=== PATIENT | male | born 1945 | race Caucasian/White ===

== ENCOUNTER → 2016-07-29 | Outpatient (CLI) | payer OTHER ==
[~2016-07-29] VITALS: Ht 180.3 cm; Wt 117.9 kg
[~2016-07-29] MED LIST: ASPIRIN EC81 M1 PO; ATENOLOL 100MG100 MG PO; ATENOLOL 50MG T50 M1 PO; ATORVASTATIN CA80 MG PO; COUMADIN 5 MG TA5 M1 PO; COZAAR 50 MG TA50 M2 PO; COZAAR 50 MG TA50 MG PO; FISH OIL 1,001000 M2 PO; FLOMAX PO; FLOMAX0.4 MG PO; HYTRIN PO; LIPITOR40 MG PO; NAPROSYN500 MG PO; NORCO 5-325 TA1 EACH PO; PACERONE 200 M200 M1 PO; PRADAXA150 MG PO; PROBIOTIC1 EAC1 PO; SIMVASTATIN40 MG PO; TOPROL XL25 MG PO; VITAMIN D; ZOFRAN ODT4 MG PO
--- NOTE | ~2016-07-29 | CATHLAB ---
[facility] [place] [address] INVASIVE PROCEDURE REPORT Name: SHERLY MEJIA OSCAR Room #: REG [facility]#: [id number] Admission: 07/29/16 Attend Phys: Charlie Asif MD Discharge: Date of : 47 Date of Service: 07/29/16 1239 Report #: [id number] THIS REPORT FOR: //name// CC: Charlie Contreras DATE OF SERVICE: 07/29/2016 INDICATION: Dyspnea, abnormal nuclear stress test. Full risks, benefits and alternatives of cardiac catheterization were explained to the patient. All questions were answered. Informed consent was obtained. The right groin area was prepped and draped in a sterile manner. Lidocaine was given subcutaneously. A 4-Greenlandic sheath was inserted into the right femoral artery via modified Seldinger technique. CORONARY ANATOMY: The left main artery is a moderate to large size caliber vessel, with minimal plaquing in the mid segment. The LAD has mild disease in the proximal segment, 30%. There were no flow-limiting lesions in the remaining segments of the LAD. The left circumflex artery branch supplies 2 moderate sized obtuse marginal arteries. The first obtuse marginal artery has mild disease in the proximal segment, 20%. The RCA is a moderate sized caliber vessel, dominant, as it supplies a PDA and posterolateral branch. There was mild disease in the proximal segment of the RCA, 30%. A left ventriculogram was performed in the BREEN projection. There was ectopy and assessment of the LV systolic function is technically difficult. The LV systolic function appears to be mildly impaired, EF around 45%. The LVEDP is approximately 28 mmHg. There is no gradient across the outflow tract. IMPRESSION: 1. Mild, nonobstructive coronary artery disease. 2. Probable mild global left ventricular dysfunction. 3. Recommend medical therapy. <ELECTRONICALLY SIGNED> By: Charlie Asif MD 07/30/16 0921 1239 13 Charlie Asif MD /nt
--- NOTE | ~2016-07-29 | EKG ---
[address] [address] ELECTROCARDIOGRAM REPORT Name: SHERLY MEJIA [id number] Admission: 07/29/16 Attend Phys: Charlie Asif MD Discharge: Date of : 47 Report #: [id number] THIS REPORT FOR: //name// [facility] Test Date: 2016-07-29 Test Time: 09:39:13 Pat Name: SHERLY MEJIA Department: Room: Gender: [employer]: Earnest HARDWICK : 1945 Requested By: Charlie Asif Order Number: [id number] MD: Ricardo Cordon Measurements Intervals [place] Rate: 82 P: FL: QRS: 27 QRSD: 101 T: 23 QT: 367 QTc: 429 Interpretive Statements Atrial fibrillation Compared to ECG 04/15/2011 11:24:34 Sinus bradycardia no longer present Electronically Signed On 07-29-2016 20:54:09 CDT by Ricardo Cordon [email or web address] <ELECTRONICALLY SIGNED> By: Ricardo Cordon MD 07/29/16 2054 0939 8 Ricardo Cordon MD /ANURAG
[2016-07-29 09:10] VITALS: BP 122/68
[2016-07-29 10:01] LABS: HEMATOCRIT 42.9 % (42.0-52.0); HEMOGLOBIN 14.5 gm/dL (14.0-18.0); MCH 29.7 pg (26.0-34.0); MCHC 33.7 g/dL (28.0-37.0); MCV 88.1 fL (80.0-100.0); RBC 4.87 mil/uL (4.50-6.00); RDW 14.1 % (10.5-14.5); WBC 5.9 thou/uL (4.0-11.0)
[2016-07-29 10:08] LABS: CALCIUM 8.5 mg/dL (8.5-10.1); CREATININE 1.1 mg/dL (0.7-1.3); POTASSIUM 4.4 mmol/L (3.5-5.1)
[2016-07-29 10:14] LABS: INR 1.2
== END ==
LOC: CATH 09:17
PROVIDERS: Internal Medicine Cardiovascular Disease
DX: I25.10 Atherosclerotic heart disease of native coronary artery without angina pectoris (principal); I48.91 Unspecified atrial fibrillation; E78.5 Hyperlipidemia, unspecified; I10 Essential (primary) hypertension; E11.9 Type 2 diabetes mellitus without complications